=== PATIENT | male | born 1975 | race Two or more races ===

== ENCOUNTER 2017-10-20 15:41 | Emergency (ER) | payer MEDICAID, OTHER ==
[~2017-10-20] VITALS: Ht 177.8 cm; Wt 90.7 kg
[2017-10-20 15:41] VITALS: BP 130/46
[2017-10-20] MEDS ORDERED: SILVER SULFADIAZINE CREAM 25 GM TUBE TP ONE (16:00)
[2017-10-20] MEDS ORDERED: CEFTRIAXONE 1 G VIAL IM ONE (16:00)
[2017-10-20] MEDS ORDERED: TDAP [DIPH/PERTUSSIS/TET] 0.5 ML VIAL IM ONE ×2 (16:00→16:05)
[2017-10-20] MEDS ORDERED: CEFTRIAXONE 1 G VIAL ONE (16:05)
[2017-10-20] MEDS ORDERED: SILVER SULFADIAZINE CREAM 25 GM TUBE ONE (16:05)
[2017-10-20] MEDS ORDERED: LIDOCAINE /MPF 1% VIAL 5 ML VIAL ONE (16:07)
== END 2017-10-20 16:40 | disposition home or self-care (01) ==
LOC: ER 15:45
DX: T21.24XA Burn of second degree of lower back, initial encounter (principal); T21.23XA Burn of second degree of upper back, initial encounter; X10.1XXA Contact with hot food, initial encounter; Y93.89 Activity, other specified; Y92.89 Other specified places as the place of occurrence of the external cause; Y99.8 Other external cause status
CPT/HCPCS: 90715; A4606; A6402; J0696; J3490; Z7610